=== PATIENT | female | born 1960 | race Caucasian/White ===

== ENCOUNTER 2020-09-18 08:01 | Outpatient (REF) | payer OTHER, SELFPAY | END 2020-09-18 08:02 | disposition home or self-care (01) | LOC: HO.LAB 08:01 | PROVIDERS: Visit Provider Internal Medicine | DX: Z20.828 Contact with and (suspected) exposure to other viral communicable diseases (principal) | CPT/HCPCS: C9803; U0003 ==

== ENCOUNTER 2021-05-14 08:43 | Outpatient (REF) | payer OTHER, SELFPAY ==
[2021-05-14 09:01] LABS: MANUAL DIFF FLAG NO
[2021-05-14 09:11] LABS: Basophils Absolute Auto 0.1 X10*3/uL (0.0-0.2); Basophils Percent Auto 1.2 % (0-2); Eosinophils Absolute Auto 0.1 X10*3/uL (0.0-0.4); Hematocrit 40.5 % (37-47); Hemoglobin 13.4 g/dl (12.0-16.0); Imm Gran Abs Auto 0.01 X10*3/uL (0.00-0.03); Imm Gran Pct Auto 0.2 % (0.0-0.4); Lymphocytes Absolute Auto 1.9 X10*3/uL (1.2-4.9); Lymphocytes Percent Auto 32.2 % (20-40); Mean Corpuscular HGB Conc 33.1 g/dl (31.0-35.0); Mean Corpuscular Hemoglobin 30.1 pg (27.0-33.0); Monocytes Absolute Auto 0.4 X10*3/uL (0.1-1.2); Monocytes Percent Auto 6.7 % (2-11); Neutrophils Absolute Auto 3.4 X10*3/uL (2.0-8.3); Neutrophils Percent Auto 57.7 % (45-73); Platelet Count 236 X10*3/uL (160-400); Red Blood Count 4.45 X10*6/uL (4.20-5.50); Red Cell Distribution Width 13.6 % (11.0-16.0); White Blood Count 5.9 X10*3/uL (4.8-10.8)
[2021-05-14 10:03] LABS: Alanine Aminotransferase 17 U/L (0-31); Albumin Level 4.2 g/dL (3.5-5.0); Alkaline Phosphatase 84 U/L (39-117); Anion Gap 13 (12-20); Aspartate Amino Transferase 17 U/L (5-31); Bilirubin Total 0.5 mg/dL (0.0-1.0); Blood Urea Nitrogen 15 mg/dL (9-16); Calcium 9.4 mg/dL (8.4-10.2); Carbon Dioxide 27 mmol/L (22-29); Chloride 106 mmol/L (96-108); Cholesterol 211 mg/dL; Estimated Glomerular Filt Rate > 60; Glucose Fasting 112 mg/dL (60-99); HDL Cholesterol 52 mg/dL; LDL Cholesterol Calculated 137 mg/dl; Potassium 3.9 mmol/L (3.3-5.1); Sodium 142 mmol/L (135-145); Total Protein 7.2 g/dL (6.5-8.0); Triglycerides 110 mg/dL
[2021-05-14 10:24] LABS: Free T4 (Free Thyroxine) 1.03 ng/dL (0.71-1.85); Thyroid Stimulating Hormone 2.56 uIU/mL (0.32-4.0); Vitamin D 25-OH Total 16.2 ng/mL (>30)
[2021-05-14 11:29] LABS: Vitamin B12 398 pg/mL (200-900)
== END 2021-05-14 08:44 | disposition home or self-care (01) ==
LOC: HO.LAB 08:43
PROVIDERS: PCP Internal Medicine; Visit Provider Internal Medicine
DX: I10 Essential (primary) hypertension (principal); E03.9 Hypothyroidism, unspecified; R53.83 Other fatigue; M19.90 Unspecified osteoarthritis, unspecified site
CPT/HCPCS: 36415; 80053; 80061; 82306; 82607; 84439; 84443; 85025

== ENCOUNTER 2021-06-15 14:39 | Outpatient (REF) | payer OTHER, SELFPAY ==
--- NOTE | ~2021-06-15 | MM_ITS ---
EXAMINATION: BONE DENSITOMETRY CLINICAL INDICATION: Screening for osteoporosis. COMPARISON: None (current study represents initial baseline exam). TECHNIQUE: Using a [employer] DXA System (software version: 13.1) manufactured by [employer], dual-energy x-ray absorptiometry was performed of the spine and left hip. The images are of good technical quality. Summary results are attached. FINDINGS: AP SPINE L1-L4: BMD 1.294 g/cm2, Z-score 1.2, T-score 0.9, normal. LEFT FEMUR, NECK: BMD 0.901 g/cm2, Z-score -0.4, T-score -1.0, normal. LEFT FEMUR, TOTAL: BMD 1.133 g/cm2, Z-score 1.2, T-score 1.0, normal. IDENTIFIED RISK FACTORS: Menopause. HISTORY OF FRACTURE: None listed. MEDICATIONS: Vitamin D. MM/XR DEXA axial skeleton IMPRESSION: 1. DIAGNOSIS: Normal bone density based on the lowest T-score value of -1.0 in the femoral neck applying World Health Organization criteria. 2. 10-YEAR FRACTURE RISK PREDICTION, FRAX: Major osteoporotic fracture (clinical spine, forearm, hip or shoulder) 3.5%. Hip fracture 0.2%. 3. Treatment Recommendations: NOF guidelines recommend consideration for treatment in postmenopausal women and men age 50 and older presenting with the following: -A hip or vertebral (clinical or morphometric) fracture. -T-score less than or equal to -2.5 at the femoral neck or spine after appropriate evaluation to exclude secondary causes. -Low bone mass at the hip or spine and a 10-year fracture probability by FRAX of greater than or equal to 3% for hip fracture or greater than or equal to 20% for major osteoporotic fracture based on the [place] adapted WHO algorithm. 4. Other Recommendations: All treatment decisions require clinical judgment and consideration of individual patient factors, including patient preferences, comorbidities, previous drug use, risk factors not captured in the FRAX model (e.g. frailty, falls, vitamin D deficiency, increased bone turnover, interval significant decline in bone density) and possible under or overestimation of fracture risk by FRAX. FUTURE SCAN RECOMMENDATION: People with diagnosed cases of osteoporosis or at high risk for fracture should have regular bone mineral density tests. For patients eligible for Medicare, routine testing is allowed once every 2 years. The testing frequency can be increased to one year for patients who have rapidly progressing disease, those who are receiving or discontinuing medical therapy to restore bone mass, or have additional risk factors.
--- NOTE | ~2021-06-15 | MM_ITS ---
EXAMINATION: MM SCREENING DIGITAL BREAST TOMOSYNTHESIS, BILATERAL CLINICAL INFORMATION: Screening. Asymptomatic. The lifetime risk of breast cancer based on the Tyrer-Cuzick Model is 9%. COMPARISON: Mammography: 07/22/2015, 06/01/2014 TECHNIQUE: Digital breast tomosynthesis is performed in both the craniocaudal and mediolateral oblique views along with computer-aided detection (CAD). Synthesized 2D images are generated from the tomosynthesis. Additional views are provided: Right CC, right MLO, left CC x2, left MLO. FINDINGS: There are scattered areas of fibroglandular density (ACR BI-RADS breast composition Category b). There are no significant masses, abnormal calcifications, or other abnormalities. Parenchymal pattern is similar to prior studies. No developing density. The axilla and skin contours are unremarkable. MM/MM tomosynthesis screening BI IMPRESSION: No mammographic evidence of malignancy. ASSESSMENT: BI-RADS 1: Negative RECOMMENDATION: Routine annual mammography screening. This patient's information was entered into a reminder system with a target due date for their next mammogram.
== END 2021-06-15 14:40 | disposition home or self-care (01) ==
LOC: HO.MAMMO 14:39
PROVIDERS: Visit Provider Internal Medicine
DX: Z12.31 Encounter for screening mammogram for malignant neoplasm of breast (principal); Z13.820 Encounter for screening for osteoporosis; Z78.0 Asymptomatic menopausal state; Z79.899 Other long term (current) drug therapy
CPT/HCPCS: 77063; 77067; 77080

== ENCOUNTER 2022-04-06 12:50 | Outpatient (REF) | payer OTHER, SELFPAY ==
[2022-04-06 14:07] LABS: Influenza A PCR NEGATIVE (Negative); Influenza B PCR NEGATIVE (Negative); Resp Syncy Virus RNA Qual PCR NEGATIVE (Negative); SARS COV2 PCR INHOUSE NEGATIVE (Negative)
== END 2022-04-06 12:51 | disposition home or self-care (01) ==
LOC: HO.LNP 12:50
PROVIDERS: Visit Provider Nurse Practitioner Acute Care
DX: R68.89 Other general symptoms and signs (principal); Z20.822 Contact with and (suspected) exposure to COVID-19
CPT/HCPCS: 0241U

== ENCOUNTER 2022-07-13 15:29 | Emergency (ER) | payer OTHER, SELFPAY ==
[2022-07-13 16:23] VITALS: BP 198/68; PULSE 63; RESP 16; TEMP 36.3; O2SAT 96; BMI 48.4
[2022-07-13 18:48] LABS: MANUAL DIFF FLAG NO
[2022-07-13 18:49] LABS: Basophils Absolute Auto 0.1 X10*3/uL (0.0-0.2); Basophils Percent Auto 1.1 % (0-2); Eosinophils Absolute Auto 0.2 X10*3/uL (0.0-0.4); Eosinophils Percent Auto 2.5 % (0-4); Hematocrit 41.8 % (37.0-47.0); Hemoglobin 13.7 g/dl (12.0-16.0); Imm Gran Abs Auto 0.03 X10*3/uL (0.00-0.03); Imm Gran Pct Auto 0.4 % (0.0-0.4); Lymphocytes Absolute Auto 1.8 X10*3/uL (1.2-4.9); Lymphocytes Percent Auto 23.3 % (20-40); Mean Corpuscular HGB Conc 32.8 g/dl (31.0-35.0); Mean Corpuscular Hemoglobin 29.7 pg (27.0-33.0); Mean Corpuscular Volume 90.5 fL (80.0-98.0); Mean Platelet Volume 10.2 fL (9.4-12.3); Monocytes Absolute Auto 0.5 X10*3/uL (0.1-1.2); Monocytes Percent Auto 6.9 % (2-11); Neutrophils Absolute Auto 5.2 x10*3/uL (2.0-8.3); Neutrophils Percent Auto 65.8 % (45-73); Platelet Count 280 X10*3/uL (160-400); Red Blood Count 4.62 X10*6/uL (4.20-5.50); Red Cell Distribution Width 13.1 % (11.0-16.0); White Blood Count 7.9 X10*3/uL (4.8-10.8)
[2022-07-13 18:50] LABS: Appearance Urine Clear; Color Urine Yellow; Glucose Urine UA Negative (Negative); Leukocyte Esterase Urine Moderate (2+) (Negative); Nitrite Urine Negative (Negative); Specific Gravity - Urine 1.015 (1.005-1.025); UMIC TRIGGER UACC YES; Urine Blood Large (3+) (Negative); Urine Ketones Negative (Negative); Urine Protein Negative (Neg-Trace)
[2022-07-13 18:55] LABS: Bacteria Urine None Seen (None Seen); Hyaline Casts Urine 0-2 /LPF (0-2); RBC Urine >20 /HPF (0-2); Squamous Epithelial Cell Urine 0-2 /HPF (0-2); UACC Culture Trigger YES; WBC Urine 21-50 /HPF (0-5)
[2022-07-13 19:10] LABS: Alanine Aminotransferase 14 U/L (0-31); Albumin Level 4.1 g/dL (3.5-5.0); Alkaline Phosphatase 88 U/L (39-117); Anion Gap 14 (12-20); Aspartate Amino Transferase 15 U/L (5-31); Bilirubin Total 0.3 mg/dL (0.0-1.0); Blood Urea Nitrogen 17 mg/dL (9-16); Calcium 9.7 mg/dL (8.4-10.2); Carbon Dioxide 26 mmol/L (22-29); Chloride 104 mmol/L (96-108); Creatinine Clr Calc Pharmacy 78.9; Estimated Glomerular Filt Rate > 60; Glucose Random 98 mg/dL (60-115); Potassium 3.9 mmol/L (3.3-5.1); Sodium 140 mmol/L (135-145); Total Protein 7.3 g/dL (6.5-8.0)
== END 2022-07-13 21:21 | disposition left against medical advice (07) ==
LOC: HO.ED 21:06
PROVIDERS: Emergency Provider Emergency Medicine; PCP Internal Medicine
DX: R10.9 Unspecified abdominal pain (principal); Z87.442 Personal history of urinary calculi; I10 Essential (primary) hypertension
CPT/HCPCS: 36415; 80053; 81001; 85025; 87086; 99282; 99283

== ENCOUNTER 2022-08-01 13:26 | Emergency (ER) | payer OTHER, SELFPAY ==
--- NOTE | ~2022-08-01 | CT_ITS ---
EXAMINATION: CT ABDOMEN AND PELVIS WITHOUT CONTRAST CLINICAL INFORMATION: Right flank pain COMPARISON: None TECHNIQUE: Multidetector volumetric imaging was performed from the superior aspect of the liver through the pubic symphysis. Sagittal and coronal reformatted images were obtained on the technologist's workstation. This CT examination was performed using dose optimization techniques as appropriate, variously including the following: *Automated exposure control *Adjustment of mA and/or kV according to patient size (this includes techniques or standardized protocols for targeted exams where dose is matched to indication/reason for exam; i.e. extremities or head) *Use of iterative reconstruction technique DLP: 917 mGy-cm FINDINGS: LUNG BASES: The visualized lung bases are unremarkable. LIVER, GALLBLADDER, AND BILIARY TREE: The liver is normal in size, shape, and attenuation. No focal hepatic lesion or biliary ductal dilatation is identified. The gallbladder is unremarkable with no evidence of radiopaque gallstones, gallbladder wall thickening, or obvious pericholecystic inflammatory changes. PANCREAS: Unremarkable. SPLEEN: Tiny calcified granulomas noted. ADRENAL GLANDS: Unremarkable. KIDNEYS AND URETERS: There is a 4 mm proximal left ureteral calculus with mild hydronephrosis. Punctate calculus in the mid left kidney. No right-sided hydronephrosis or obstructing calculus. BLADDER: Unremarkable. GASTROINTESTINAL TRACT: No evidence of bowel obstruction or significant wall thickening. No free fluid or free air is seen. ABDOMINAL WALL: No significant hernia is appreciated. LYMPH NODES: Normal. VASCULAR: Scattered atherosclerotic calcifications. PELVIC VISCERA: Unremarkable. OSSEOUS STRUCTURES: Scattered degenerative changes in the spine. CT/CT abdomen pelvis wo IV con IMPRESSION: Proximal left ureteral calculus measuring 4 mm with mild hydronephrosis.
[2022-08-01 15:17] VITALS: BP 187/85; PULSE 55; RESP 20; TEMP 36.1; O2SAT 96; BMI 48.4
[2022-08-01 23:01] LABS: Appearance Urine Clear; Color Urine Yellow; Glucose Urine UA Negative (Negative); Leukocyte Esterase Urine Large (3+) (Negative); Nitrite Urine Negative (Negative); PH 5.5 (5.0-9.0); Specific Gravity - Urine <= 1.005 (1.005-1.025); UMIC TRIGGER UACC YES; Urine Blood Moderate (2+) (Negative); Urine Ketones Negative (Negative); Urine Protein Negative (Neg-Trace)
[2022-08-01 23:17] LABS: Bacteria Urine 1+ (None Seen); Hyaline Casts Urine 0-2 /LPF (0-2); Squamous Epithelial Cell Urine 0-2 /HPF (0-2); UACC Culture Trigger YES; WBC Urine 21-50 /HPF (0-5)
[2022-08-02 03:47] VITALS: BP 152/67; PULSE 51; RESP 16; TEMP 36.6; O2SAT 96
--- NOTE | 2022-08-02 04:53 | ED_ITS ---
HPI - Abdominal Pain General Chief Complaint: Abdominal Pain Stated Complaint: Kidney Stones Time Seen by Provider: 08/02/22 04:38 Source: patient Mode of arrival: ambulatory Limitations: no limitations History of Present Illness HPI narrative: Patient with history of hypertension with remote history of kidney stone complaining of pain in the left side wrapping up to the front for last 3 weeks with nausea with blood in the urine no vomiting Related Data Home Medications Medication Instructions Recorded Confirmed levothyroxine 50 mcg tablet 50 mcg PO DAILY 04/06/22 metoprolol succinate 50 mg 50 mg PO DAILY 04/06/22 tablet,extended release 24 hr Previous Rx's Medication Instructions Recorded oxycodone 5 mg tablet 5 mg PO Q6H PRN Pain, Moderate #20 08/02/22 tabs tamsulosin 0.4 mg capsule (Flomax) 0.4 mg PO BEDTIME #10 caps 08/02/22 Allergies Allergy/AdvReac Type Severity Reaction Status Date / Time lisinopril [LISINOPRIL] Allergy Severe LIP Verified 07/12/22 12:50 NUMBNESS Review of Systems Review of Systems Yes all other systems are reviewed and are negative [facility] Social History Social History Patient Tobacco Use Status: Never used Tobacco Advance Directives: No Physical Exam ED Vital Signs: Vital Signs - 24 hr 08/01/22 15:17 08/02/22 03:47 08/02/22 05:10 Temperature 97.0 F 97.9 F 98 F Pulse Rate 55 51 64 Respiratory Rate 20 16 15 Blood Pressure 187/85 H 152/67 H 140/64 H Pulse Oximetry 96 96 96 Oxygen Delivery Method Room Air Room Air Room Air BMI result Body Mass Index 48.4 MDM - Abdominal Pain MDM Narrative Medical decision making narrative: Patient with 4 mm proximal left ureteric stone feeling better now discharge patient home follow-up with urologist Medical Records Attestation: I reviewed the patient's medical records. Lab Data Attestation: I reviewed the patient's lab results. Result diagrams: 08/02/22 05:28 08/02/22 05:28 Labs: Lab Results 08/01/22 08/02/22 08/02/22 Range/Units 22:55 05:28 05:28 WBC 7.0 (4.8-10.8) X10*3/uL RBC 4.63 (4.20-5.50) X10*6/uL Hgb 13.5 (12.0-16.0) g/dl Hct 40.8 (37.0-47.0) % MCV 88.1 (80.0-98.0) fL MCH 29.2 (27.0-33.0) pg MCHC 33.1 (31.0-35.0) g/dl RDW 12.8 (11.0-16.0) % Plt Count 250 (160-400) X10*3/uL MPV 10.0 (9.4-12.3) fL Immature Gran % (Auto) 0.3 (0.0-0.4) % Neut % (Auto) 70.5 (45-73) % Lymph % (Auto) 18.3 L (20-40) % [place] % (Auto) 6.6 (2-11) % Eos % (Auto) 3.4 (0-4) % Baso % (Auto) 0.9 (0-2) % Lymph # (Auto) 1.3 (1.2-4.9) X10*3/uL [place] # (Auto) 0.5 (0.1-1.2) X10*3/uL Eos # (Auto) 0.2 (0.0-0.4) X10*3/uL Baso # (Auto) 0.1 (0.0-0.2) X10*3/uL Abs Immat Gran (auto) 0.02 (0.00-0.03) X10*3/uL Absolute Neuts (auto) 5.0 (2.0-8.3) x10*3/uL Absolute Nucleated RBC 0.000 (0.0-0.012) X10*3/uL Nucleated RBC % (auto) 0.0 (0.0-0.2) /100WBC Sodium 138 (135-145) mmol/L Potassium 4.2 (3.3-5.1) mmol/L Chloride 102 (96-108) mmol/L Carbon Dioxide 24 (22-29) mmol/L Anion Gap 16 (12-20) BUN 14 (9-16) mg/dL Creatinine 0.70 (0.5-1.4) mg/dL Estim Creat Clear Calc 90.2 Estimated GFR > 60 Random Glucose 106 (60-115) mg/dL Calcium 9.2 (8.4-10.2) mg/dL Total Bilirubin 0.3 (0.0-1.0) mg/dL AST 22 D (5-31) U/L ALT 13 (0-31) U/L Alkaline Phosphatase 85 (39-117) U/L Total Protein 7.3 (6.5-8.0) g/dL Albumin 4.1 (3.5-5.0) g/dL Urine Color Yellow Urine Appearance Clear Urine pH 5.5 (5.0-9.0) Ur Specific [place] <= 1.005 (1.005-1.025) Urine Protein Negative (Neg-Trace) mg/dL Urine Glucose (UA) Negative (Negative) mg/dL Urine Ketones Negative (Negative) mg/dL Urine Blood Moderate (2+) H (Negative) Urine Nitrite Negative (Negative) Ur Leukocyte Esterase Large (3+) H (Negative) Urine RBC 3-5 H (0-2) /HPF Urine WBC 21-50 H (0-5) /HPF Ur Squamous Epith Cells 0-2 (0-2) /HPF Urine Bacteria 1+ (None Seen) Hyaline Casts 0-2 (0-2) /LPF Discharge Plan Discharge Clinical Impression: Kidney stone on left side Patient Disposition: Home, Self-Care Instructions: Kidney Stones (ED) Additional Instructions: Drink plenty of fluids Pain medication and Flomax as prescribed Follow-up with urologist Prescriptions: New oxycodone 5 mg tablet 5 mg PO Q6H PRN (Reason: Pain, Moderate) Qty: 20 0RF Rx Instructions: Partial Fill upon patient request. tamsulosin [Flomax] 0.4 mg capsule 0.4 mg PO BEDTIME Qty: 10 0RF No Action levothyroxine 50 mcg tablet 50 mcg PO DAILY metoprolol succinate 50 mg tablet extended release 24 hr 50 mg PO DAILY Referrals: Danyel Burns MD [Physician] - 2 days Interventions: ED Discharge Assessment Last Done: 08/02/22 07:40 Discharge Date/Time: 08/02/22 07:42
[2022-08-02 05:10] VITALS: BP 140/64; PULSE 64; RESP 15; TEMP 36.6; O2SAT 96
[2022-08-02] MEDS: 0.9 % Sodium Chloride 1,000 ML 999 ML IV (05:31)
[2022-08-02] MEDS: Morphine Sulfate 4 MG/ML CARTRIDGE IVPUSH (05:34)
[2022-08-02] MEDS: ondansetron HCL 4 MG/2 ML VIAL IVPUSH (05:34)
[2022-08-02 05:47] LABS: Basophils Absolute Auto 0.1 X10*3/uL (0.0-0.2); Basophils Percent Auto 0.9 % (0-2); Eosinophils Absolute Auto 0.2 X10*3/uL (0.0-0.4); Eosinophils Percent Auto 3.4 % (0-4); Hematocrit 40.8 % (37.0-47.0); Hemoglobin 13.5 g/dl (12.0-16.0); Imm Gran Abs Auto 0.02 X10*3/uL (0.00-0.03); Imm Gran Pct Auto 0.3 % (0.0-0.4); Lymphocytes Absolute Auto 1.3 X10*3/uL (1.2-4.9); Lymphocytes Percent Auto 18.3 % (20-40); MANUAL DIFF FLAG NO; Mean Corpuscular HGB Conc 33.1 g/dl (31.0-35.0); Mean Corpuscular Hemoglobin 29.2 pg (27.0-33.0); Mean Corpuscular Volume 88.1 fL (80.0-98.0); Monocytes Absolute Auto 0.5 X10*3/uL (0.1-1.2); Monocytes Percent Auto 6.6 % (2-11); Neutrophils Percent Auto 70.5 % (45-73); Platelet Count 250 X10*3/uL (160-400); Red Blood Count 4.63 X10*6/uL (4.20-5.50); Red Cell Distribution Width 12.8 % (11.0-16.0)
[2022-08-02 06:19] LABS: Alanine Aminotransferase 13 U/L (0-31); Albumin Level 4.1 g/dL (3.5-5.0); Alkaline Phosphatase 85 U/L (39-117); Anion Gap 16 (12-20); Aspartate Amino Transferase 22 U/L (5-31); Bilirubin Total 0.3 mg/dL (0.0-1.0); Blood Urea Nitrogen 14 mg/dL (9-16); Calcium 9.2 mg/dL (8.4-10.2); Carbon Dioxide 24 mmol/L (22-29); Chloride 102 mmol/L (96-108); Creatinine Clr Calc Pharmacy 90.2; Estimated Glomerular Filt Rate > 60; Glucose Random 106 mg/dL (60-115); Potassium 4.2 mmol/L (3.3-5.1); Sodium 138 mmol/L (135-145); Total Protein 7.3 g/dL (6.5-8.0)
== END 2022-08-02 07:42 | disposition home or self-care (01) ==
PROVIDERS: Emergency Provider Internal Medicine
DX: N20.0 Calculus of kidney (principal); Z79.899 Other long term (current) drug therapy
CPT/HCPCS: 36415; 74176; 80053; 81001; 81003; 85025; 87086; 96361; 96374; 96375; 99283; 99284; J2270; J2405

== ENCOUNTER 2022-10-07 19:19 | Emergency (ER) | payer OTHER, SELFPAY ==
--- NOTE | ~2022-10-07 | CT_ITS ---
EXAMINATION: CT ABDOMEN AND PELVIS WITHOUT CONTRAST CLINICAL INFORMATION: Left flank pain. COMPARISON: CT scan abdomen pelvis 08/02/2022 TECHNIQUE: Multidetector volumetric imaging was performed from the superior aspect of the liver through the pubic symphysis. Sagittal and coronal reformatted images were obtained on the technologist's workstation. This CT examination was performed using dose optimization techniques as appropriate, variously including the following: *Automated exposure control *Adjustment of mA and/or kV according to patient size (this includes techniques or standardized protocols for targeted exams where dose is matched to indication/reason for exam; i.e. extremities or head) *Use of iterative reconstruction technique DLP: 1124 mGy-cm FINDINGS: LUNG BASES: The visualized lung bases are unremarkable. LIVER, GALLBLADDER, AND BILIARY TREE: Liver is prominent size measuring 20 cm superior inferior. No focal liver lesion or intrahepatic bile duct dilatation. The gallbladder is unremarkable with no evidence of radiopaque gallstones, gallbladder wall thickening, or obvious pericholecystic inflammatory changes. PANCREAS: Unremarkable. SPLEEN: Unremarkable. ADRENAL GLANDS: Unremarkable. KIDNEYS AND URETERS: Left kidney: Moderate hydronephrosis of left kidney with distention renal pelvis calyces and the left-sided hydroureter. There is an obstructing 4 mm stone in the distal left ureter approximately 7 cm proximal to the left ureterovesical junction. There is a nonobstructive 1 mm stone in the mid upper pole of left kidney. Right kidney: No renal or ureteral calculus. No hydronephrosis. BLADDER: Unremarkable. GASTROINTESTINAL TRACT: The small and large bowel are unremarkable. The appendix is unremarkable. ABDOMINAL WALL: Surgical mesh at the right anterior abdominal wall. No evidence of recurrent hernia. No inflammation or fluid collection. LYMPH NODES: Normal. VASCULAR: Scattered vascular calcifications of the wall of aorta and iliac arteries. There is no aneurysm. PELVIC VISCERA: Uterus is anteverted. No adnexal abnormality. OSSEOUS STRUCTURES: Multilevel degenerative spondylosis of the spine. CT/CT abdomen pelvis wo IV con IMPRESSION: Moderate hydronephrosis of left kidney due to an obstructing 4 mm stone in the distal left ureter. Fleischner guidelines were followed.
[2022-10-07 19:41] VITALS: BP 194/71; PULSE 66; RESP 20; TEMP 36.4; O2SAT 96; BMI 47.0
--- NOTE | 2022-10-07 19:43 | ED_ITS ---
HPI - Abdominal Pain General Chief Complaint: Abdominal Pain <Nadia England NP - Last Filed: 10/07/22 19:44> Stated Complaint: L side pain <Nadia England NP - Last Filed: 10/07/22 19:44> Time Seen by Provider: 10/07/22 21:33 <Nadia England NP - Last Filed: 10/07/22 19:44> Source: patient <BASIM Singh - Last Filed: 10/07/22 22:45> Mode of arrival: ambulatory <BASIM Singh - Last Filed: 10/07/22 22:45> Limitations: no limitations <BASIM Singh Last Filed: 10/07/22 22:45> History of Present Illness HPI narrative: 62-year-old female with history of morbid obesity, HTN, left-sided kidney stones, recurring UTIs who presents to the ER for evaluation of left-sided upper abdominal pain that radiates to her left lower quadrant and to her back for the last few days. This is associated with nausea and urinary symptoms of painful urination, difficulty emptying her bladder and frequency. She denies any fever or chills at home but generally feels unwell. She states it feels different than her previous kidney stones. <BASIM Singh - Last Filed: 10/07/22 22:45> MD elicited complaint: abdominal pain and flank pain <BASIM Singh - Last Filed: 10/07/22 22:45> Pertinent past history: kidney stones <BASIM Singh - Last Filed: 10/07/22 22:45> Onset (ago): week(s) (1) <BASIM Singh Last Filed: 10/07/22 22:45> Pain Consistency: intermittent <BASIM Singh Last Filed: 10/07/22 22:45> Location: LUQ <BASIM Singh Last Filed: 10/07/22 22:45> Severity: moderate <BASIM Singh Last Filed: 10/07/22 22:45> Quality: stabbing and aching <BASIM Singh Last Filed: 10/07/22 22:45> Radiation: LLQ and L flank <BASIM Singh - Last Filed: 10/07/22 22:45> Migration to: no migration <BASIM Singh - Last Filed: 10/07/22 22:45> Exacerbating factors: nothing <BASIM Singh - Last Filed: 10/07/22 22:45> Relieving factors: nothing <BASIM Singh - Last Filed: 10/07/22 22:45> Associated symptoms: nausea and dysuria <BASIM Singh - Last Filed: 10/07/22 22:45> Related Data Home Medications: Home Medications Medication Instructions Recorded Confirmed levothyroxine 50 mcg tablet 50 mcg PO DAILY 04/06/22 metoprolol succinate 50 mg 50 mg PO DAILY 04/06/22 tablet,extended release 24 hr Previous Rx's Medication Instructions Recorded oxycodone 5 mg tablet 5 mg PO Q6H PRN Pain, Moderate #20 08/02/22 tabs tamsulosin 0.4 mg capsule (Flomax) 0.4 mg PO BEDTIME #10 caps 08/02/22 ibuprofen 600 mg tablet 600 mg PO Q8H PRN fever or pain 10/07/22 #20 tabs levofloxacin 750 mg tablet 750 mg PO DAILY #7 tabs 10/07/22 ondansetron 4 mg disintegrating 4 mg PO Q8H PRN nausea and 10/07/22 tablet vomiting 3 days #10 tabs oxycodone 5 mg tablet 5 mg PO Q8H PRN severe pain (scale 10/07/22 score 7-10) #7 tabs tamsulosin 0.4 mg capsule (Flomax) 0.4 mg PO DAILY #30 caps 10/07/22 <Nadia England NP - Last Filed: 10/07/22 19:44> Allergies/Adverse Reactions: Allergies Allergy/AdvReac Type Severity Reaction Status Date / Time lisinopril [LISINOPRIL] Allergy Severe LIP Verified 10/07/22 19:46 NUMBNESS <Nadia England NP - Last Filed: 10/07/22 19:44> Review of Systems Review of Systems Constitutional: No Fever, No Chills ENT/Mouth: No sore throat, No Rhinorrhea, No Swallowing Difficulty Cardiovascular: No Chest Pain, No SOB, No Orthopnea, No Edema Respiratory: No Cough, No Sputum, No Wheezing, No dyspnea Gastrointestinal: + Nausea, No Vomiting, No Diarrhea, + abdominal Pain, No Hematochezia, No Melena Genitourinary: + Dysuria, + Urinary Frequency, No Hematuria Musculoskeletal: No joint pain, +Myalgias Skin: No Skin Lesions, No rash Neuro: No Weakness, No Numbness, No Dizziness, No Headache Psych: No Anxiety/Panic, No Depression Heme/Lymph: No Bruising, No Lymphadenopathy <BASIM Singh - Last Filed: 10/07/22 22:45> [facility] Social History Social History: Social History Alcohol intake: never Patient Tobacco Use Status: Never used Tobacco Smoked in Last 30 Days: No Use of substances other than those prescribed or required for medical reasons: No Advance Directives: No Advance Directives Information Provided: Yes Patient : No <Nadia England NP - Last Filed: 10/07/22 19:44> Physical Exam ED Vital Signs: Vital Signs - 24 hr 10/07/22 19:41 10/07/22 22:00 Temperature 97.5 F 98.0 F Pulse Rate 66 58 Respiratory Rate 20 16 Blood Pressure 194/71 H 152/61 H Pulse Oximetry 96 96 Oxygen Delivery Method Room Air Room Air BMI result Body Mass Index 47.0 <Nadia England NP - Last Filed: 10/07/22 19:44> Vital Signs - 24 hr 10/07/22 19:41 10/07/22 22:00 Temperature 97.5 F 98.0 F Pulse Rate 66 58 Respiratory Rate 20 16 Blood Pressure 194/71 H 152/61 H Pulse Oximetry 96 96 Oxygen Delivery Method Room Air Room Air BMI result Body Mass Index 47.0 <BASIM Singh - Last Filed: 10/07/22 22:45> Appearance: Alert. Oriented X3. No acute distress. Eyes: Pupils equal, round and reactive to light. ENT: Pharynx normal. Neck: Normal inspection. Neck supple. CVS: Normal heart rate and rhythm. Pulses normal. Respiratory: No respiratory distress. Breath sounds normal. Abdomen: Obese, Soft with both LUQ and LLQ tenderness to deep palpation without rebound or guarding. normal+BS x4. +CVA tenderness on the left Skin: Skin warm and dry. Normal skin color. Normal skin turgor. No rashes. Extremities: No lower extremity edema. Neuro: Oriented X 3. No motor deficit. No sensory deficit. <BASIM Singh - Last Filed: 10/07/22 22:45> Course Course Course Narrative: This is a rapid medical exam. Deferred additional HPI, ROS and PE to the primary provider. 62-year-old female with a history of hypertension presents with left-sided abdominal pain with radiation to the flank with nausea for the last 1 week. Patient reports history of kidney stones. Will check labs, UA, COVID screen. Vitals stable. <Nadia England NP - Last Filed: 10/07/22 19:44> Reevaluation(s) Reevaluation #1: patient seen and examined in treatment room. VSS. appears well. She has no leukocytosis. Her renal function is normal. Her UA is c/w infection with moderate leukocyte esterase, 21-50 WBC. also with small amount of blood. Will get CT scan to assess for kidney stone/pyelo. She is not septic at this time. No fevers, no tachycardia and no elevated WBC. Will give dose of oral levaquin now and reassess. prior records reviewed - UA was positive and urine culture was negative. <BASIM Singh - Last Filed: 10/07/22 22:45> Reevaluation #2: CT scan with obstructing 4mm stone in the distal ureter w/ moderate hydro. She is comfortable after tylenol, no vomiting and no fevers. given she is not septic, will start her on treatment with po abx, flomax, pain control and have her follow up with urology for possible intervention if she does not pass the stone on her own. patient agrees with plan. all questions were answered. instructed to come back to the ER if she develops new or worsening symptoms. <BASIM Singh - Last Filed: 10/07/22 22:45> Medical Decision Making Lab Data Result Diagrams: : 10/07/22 19:56 10/07/22 19:56 <Nadia England NP - Last Filed: 10/07/22 19:44> Labs: Lab Results 10/07/22 10/07/22 10/07/22 Range/Units 19:53 19:53 19:56 WBC 9.2 (4.8-10.8) X10*3/uL RBC 4.67 (4.20-5.50) X10*6/uL Hgb 13.6 (12.0-16.0) g/dl Hct 40.3 (37.0-47.0) % MCV 86.3 (80.0-98.0) fL MCH 29.1 (27.0-33.0) pg MCHC 33.7 (31.0-35.0) g/dl RDW 12.9 (11.0-16.0) % Plt Count 265 (160-400) X10*3/uL MPV 10.2 (9.4-12.3) fL Immature Gran % (Auto) 0.4 (0.0-0.4) % Neut % (Auto) 67.0 (45-73) % Lymph % (Auto) 21.4 (20-40) % [place] % (Auto) 6.6 (2-11) % Eos % (Auto) 3.5 (0-4) % Baso % (Auto) 1.1 (0-2) % Lymph # (Auto) 2.0 (1.2-4.9) X10*3/uL [place] # (Auto) 0.6 (0.1-1.2) X10*3/uL Eos # (Auto) 0.3 (0.0-0.4) X10*3/uL Baso # (Auto) 0.1 (0.0-0.2) X10*3/uL Abs Immat Gran (auto) 0.04 H (0.00-0.03) X10*3/uL Absolute Neuts (auto) 6.2 (2.0-8.3) x10*3/uL Absolute Nucleated RBC 0.000 (0.0-0.012) X10*3/uL Nucleated RBC % (auto) 0.0 (0.0-0.2) /100WBC Sodium (135-145) mmol/L Potassium (3.3-5.1) mmol/L Chloride (96-108) mmol/L Carbon Dioxide (22-29) mmol/L Anion Gap (12-20) BUN (9-16) mg/dL Creatinine (0.5-1.4) mg/dL Estim Creat Clear Calc Estimated GFR Random Glucose (60-115) mg/dL Calcium (8.4-10.2) mg/dL Total Bilirubin (0.0-1.0) mg/dL Direct Bilirubin (0.0-0.5) mg/dL AST (5-31) U/L ALT (0-31) U/L Alkaline Phosphatase (39-117) U/L Total Protein (6.5-8.0) g/dL Albumin (3.5-5.0) g/dL Lipase (8-78) U/L Urine Color Yellow Urine Appearance Clear Urine pH 6.5 (5.0-9.0) Ur Specific [place] 1.015 (1.005-1.025) Urine Protein Negative (Neg-Trace) mg/dL Urine Glucose (UA) Negative (Negative) mg/dL Urine Ketones Negative (Negative) mg/dL Urine Blood Small (1+) H (Negative) Urine Nitrite Negative (Negative) Ur Leukocyte Esterase Moderate (2+) H (Negative) Urine RBC >20 H (0-2) /HPF Urine WBC 21-50 H (0-5) /HPF Ur Squamous Epith Cells 0-2 (0-2) /HPF Urine Bacteria None Seen (None Seen) Hyaline Casts 0-2 (0-2) /LPF COVID-19 (KULWINDER) Negative (Negative) COVID-19 Clin Com See Note 10/07/22 Range/Units 19:56 WBC (4.8-10.8) X10*3/uL RBC (4.20-5.50) X10*6/uL Hgb (12.0-16.0) g/dl Hct (37.0-47.0) % MCV (80.0-98.0) fL MCH (27.0-33.0) pg MCHC (31.0-35.0) g/dl RDW (11.0-16.0) % Plt Count (160-400) X10*3/uL MPV (9.4-12.3) fL Immature Gran % (Auto) (0.0-0.4) % Neut % (Auto) (45-73) % Lymph % (Auto) (20-40) % [place] % (Auto) (2-11) % Eos % (Auto) (0-4) % Baso % (Auto) (0-2) % Lymph # (Auto) (1.2-4.9) X10*3/uL [place] # (Auto) (0.1-1.2) X10*3/uL Eos # (Auto) (0.0-0.4) X10*3/uL Baso # (Auto) (0.0-0.2) X10*3/uL Abs Immat Gran (auto) (0.00-0.03) X10*3/uL Absolute Neuts (auto) (2.0-8.3) x10*3/uL Absolute Nucleated RBC (0.0-0.012) X10*3/uL Nucleated RBC % (auto) (0.0-0.2) /100WBC Sodium 138 (135-145) mmol/L Potassium 3.5 (3.3-5.1) mmol/L Chloride 102 (96-108) mmol/L Carbon Dioxide 25 (22-29) mmol/L Anion Gap 15 (12-20) BUN 17 H (9-16) mg/dL Creatinine 1.08 (0.5-1.4) mg/dL Estim Creat Clear Calc 56.6 Estimated GFR 51 Random Glucose 159 H (60-115) mg/dL Calcium 9.5 (8.4-10.2) mg/dL Total Bilirubin 0.3 (0.0-1.0) mg/dL Direct Bilirubin < 0.2 (0.0-0.5) mg/dL AST 14 (5-31) U/L ALT 14 (0-31) U/L Alkaline Phosphatase 95 (39-117) U/L Total Protein 7.2 (6.5-8.0) g/dL Albumin 4.3 (3.5-5.0) g/dL Lipase 16 (8-78) U/L Urine Color Urine Appearance Urine pH (5.0-9.0) Ur Specific [place] (1.005-1.025) Urine Protein (Neg-Trace) mg/dL Urine Glucose (UA) (Negative) mg/dL Urine Ketones (Negative) mg/dL Urine Blood (Negative) Urine Nitrite (Negative) Ur Leukocyte Esterase (Negative) Urine RBC (0-2) /HPF Urine WBC (0-5) /HPF Ur Squamous Epith Cells (0-2) /HPF Urine Bacteria (None Seen) Hyaline Casts (0-2) /LPF COVID-19 ([facility]) (Negative) COVID-19 Clin Com <Nadia England, POLO - Last Filed: 10/07/22 19:44> Lab Results 10/07/22 10/07/22 10/07/22 Range/Units 19:53 19:53 19:56 WBC 9.2 (4.8-10.8) X10*3/uL RBC 4.67 (4.20-5.50) X10*6/uL Hgb 13.6 (12.0-16.0) g/dl Hct 40.3 (37.0-47.0) % MCV 86.3 (80.0-98.0) fL MCH 29.1 (27.0-33.0) pg MCHC 33.7 (31.0-35.0) g/dl RDW 12.9 (11.0-16.0) % Plt Count 265 (160-400) X10*3/uL MPV 10.2 (9.4-12.3) fL Immature Gran % (Auto) 0.4 (0.0-0.4) % Neut % (Auto) 67.0 (45-73) % Lymph % (Auto) 21.4 (20-40) % [place] % (Auto) 6.6 (2-11) % Eos % (Auto) 3.5 (0-4) % Baso % (Auto) 1.1 (0-2) % Lymph # (Auto) 2.0 (1.2-4.9) X10*3/uL [place] # (Auto) 0.6 (0.1-1.2) X10*3/uL Eos # (Auto) 0.3 (0.0-0.4) X10*3/uL Baso # (Auto) 0.1 (0.0-0.2) X10*3/uL Abs Immat Gran (auto) 0.04 H (0.00-0.03) X10*3/uL Absolute Neuts (auto) 6.2 (2.0-8.3) x10*3/uL Absolute Nucleated RBC 0.000 (0.0-0.012) X10*3/uL Nucleated RBC % (auto) 0.0 (0.0-0.2) /100WBC Sodium (135-145) mmol/L Potassium (3.3-5.1) mmol/L Chloride (96-108) mmol/L Carbon Dioxide (22-29) mmol/L Anion Gap (12-20) BUN (9-16) mg/dL Creatinine (0.5-1.4) mg/dL Estim Creat Clear Calc Estimated GFR Random Glucose (60-115) mg/dL Calcium (8.4-10.2) mg/dL Total Bilirubin (0.0-1.0) mg/dL Direct Bilirubin (0.0-0.5) mg/dL AST (5-31) U/L ALT (0-31) U/L Alkaline Phosphatase (39-117) U/L Total Protein (6.5-8.0) g/dL Albumin (3.5-5.0) g/dL Lipase (8-78) U/L Urine Color Yellow Urine Appearance Clear Urine pH 6.5 (5.0-9.0) Ur Specific [place] 1.015 (1.005-1.025) Urine Protein Negative (Neg-Trace) mg/dL Urine Glucose (UA) Negative (Negative) mg/dL Urine Ketones Negative (Negative) mg/dL Urine Blood Small (1+) H (Negative) Urine Nitrite Negative (Negative) Ur Leukocyte Esterase Moderate (2+) H (Negative) Urine RBC >20 H (0-2) /HPF Urine WBC 21-50 H (0-5) /HPF Ur Squamous Epith Cells 0-2 (0-2) /HPF Urine Bacteria None Seen (None Seen) Hyaline Casts 0-2 (0-2) /LPF COVID-19 ([facility]) Negative (Negative) COVID-19 Clin Com See Note 10/07/22 Range/Units 19:56 WBC (4.8-10.8) X10*3/uL RBC (4.20-5.50) X10*6/uL Hgb (12.0-16.0) g/dl Hct (37.0-47.0) % MCV (80.0-98.0) fL MCH (27.0-33.0) pg MCHC (31.0-35.0) g/dl RDW (11.0-16.0) % Plt Count (160-400) X10*3/uL MPV (9.4-12.3) fL Immature Gran % (Auto) (0.0-0.4) % Neut % (Auto) (45-73) % Lymph % (Auto) (20-40) % [place] % (Auto) (2-11) % Eos % (Auto) (0-4) % Baso % (Auto) (0-2) % Lymph # (Auto) (1.2-4.9) X10*3/uL [place] # (Auto) (0.1-1.2) X10*3/uL Eos # (Auto) (0.0-0.4) X10*3/uL Baso # (Auto) (0.0-0.2) X10*3/uL Abs Immat Gran (auto) (0.00-0.03) X10*3/uL Absolute Neuts (auto) (2.0-8.3) x10*3/uL Absolute Nucleated RBC (0.0-0.012) X10*3/uL Nucleated RBC % (auto) (0.0-0.2) /100WBC Sodium 138 (135-145) mmol/L Potassium 3.5 (3.3-5.1) mmol/L Chloride 102 (96-108) mmol/L Carbon Dioxide 25 (22-29) mmol/L Anion Gap 15 (12-20) BUN 17 H (9-16) mg/dL Creatinine 1.08 (0.5-1.4) mg/dL Estim Creat Clear Calc 56.6 Estimated GFR 51 Random Glucose 159 H (60-115) mg/dL Calcium 9.5 (8.4-10.2) mg/dL Total Bilirubin 0.3 (0.0-1.0) mg/dL Direct Bilirubin < 0.2 (0.0-0.5) mg/dL AST 14 (5-31) U/L ALT 14 (0-31) U/L Alkaline Phosphatase 95 (39-117) U/L Total Protein 7.2 (6.5-8.0) g/dL Albumin 4.3 (3.5-5.0) g/dL Lipase 16 (8-78) U/L Urine Color Urine Appearance Urine pH (5.0-9.0) Ur Specific [place] (1.005-1.025) Urine Protein (Neg-Trace) mg/dL Urine Glucose (UA) (Negative) mg/dL Urine Ketones (Negative) mg/dL Urine Blood (Negative) Urine Nitrite (Negative) Ur Leukocyte Esterase (Negative) Urine RBC (0-2) /HPF Urine WBC (0-5) /HPF Ur Squamous Epith Cells (0-2) /HPF Urine Bacteria (None Seen) Hyaline Casts (0-2) /LPF COVID-19 ([facility]) (Negative) COVID-19 Clin Com <BASIM Singh - Last Filed: 10/07/22 22:45> Medications Administered Discontinued Medications Generic Name Dose Route Start Last Admin Trade Name Freq PRN Reason Stop Dose Admin Acetaminophen 975 mg 10/07/22 21:38 10/07/22 22:11 Acetaminophen 325 Mg Tablet PO 10/07/22 21:39 975 mg ONCE ONE Administration Levofloxacin 750 mg 10/07/22 21:38 10/07/22 22:11 Levofloxacin 750 Mg Tablet PO 10/07/22 21:39 750 mg ONCE ONE Administration <Nadia England NP - Last Filed: 10/07/22 19:44> Medications Administered Discontinued Medications Generic Name Dose Route Start Last Admin Trade Name Freq PRN Reason Stop Dose Admin Acetaminophen 975 mg 10/07/22 21:38 10/07/22 22:11 Acetaminophen 325 Mg Tablet PO 10/07/22 21:39 975 mg ONCE ONE Administration Levofloxacin 750 mg 10/07/22 21:38 10/07/22 22:11 Levofloxacin 750 Mg Tablet PO 10/07/22 21:39 750 mg ONCE ONE Administration <BASIM Singh - Last Filed: 10/07/22 22:45> Discharge Plan Discharge Clinical Impression: UTI (urinary tract infection), Kidney stone on left side <Nadia England NP - Last Filed: 10/07/22 19:44> Patient Disposition: Home, Self-Care <Nadia England NP - Last Filed: 10/07/22 19:44> Instructions: Kidney Stones (ED), Urinary Tract Infection in Women (ED) <Nadia England NP - Last Filed: 10/07/22 19:44> Additional Instructions: Your CT scan showed a 4mm kidney stone. You most likely will pass this on your own Take the prescribed medications as directed Drink plenty of fluids Call the Urology office tomorrow to arrange outpatient follow up If you develop worsening pain, fevers, vomiting or any other concerning symptoms call 911 or come back to the ER for further evaluation. <Nadia England NP - Last Filed: 10/07/22 19:44> Prescriptions: New oxycodone 5 mg tablet 5 mg PO Q8H PRN (Reason: severe pain (scale score 7-10)) Qty: 7 0RF Rx Instructions: Partial Fill upon patient request. ibuprofen 600 mg tablet 600 mg PO Q8H PRN (Reason: fever or pain) Qty: 20 0RF tamsulosin [Flomax] 0.4 mg capsule 0.4 mg PO DAILY Qty: 30 0RF ondansetron 4 mg tablet,disintegrating 4 mg PO Q8H PRN (Reason: nausea and vomiting) 3 Days Qty: 10 0RF levofloxacin 750 mg tablet 750 mg PO DAILY Qty: 7 0RF No Action oxycodone 5 mg tablet 5 mg PO Q6H PRN (Reason: Pain, Moderate) Qty: 20 0RF Rx Instructions: Partial Fill upon patient request. tamsulosin [Flomax] 0.4 mg capsule 0.4 mg PO BEDTIME Qty: 10 0RF levothyroxine 50 mcg tablet 50 mcg PO DAILY metoprolol succinate 50 mg tablet extended release 24 hr 50 mg PO DAILY <Nadia England NP - Last Filed: 10/07/22 19:44> Referrals: [facility] [Provider Group] <Nadia England NP - Last Filed: 10/07/22 19:44>
[2022-10-07 20:00] LABS: MANUAL DIFF FLAG NO
[2022-10-07 20:05] LABS: Basophils Absolute Auto 0.1 X10*3/uL (0.0-0.2); Basophils Percent Auto 1.1 % (0-2); Eosinophils Absolute Auto 0.3 X10*3/uL (0.0-0.4); Eosinophils Percent Auto 3.5 % (0-4); Hematocrit 40.3 % (37.0-47.0); Hemoglobin 13.6 g/dl (12.0-16.0); Imm Gran Abs Auto 0.04 X10*3/uL (0.00-0.03); Imm Gran Pct Auto 0.4 % (0.0-0.4); Lymphocytes Percent Auto 21.4 % (20-40); Mean Corpuscular HGB Conc 33.7 g/dl (31.0-35.0); Mean Corpuscular Hemoglobin 29.1 pg (27.0-33.0); Mean Corpuscular Volume 86.3 fL (80.0-98.0); Mean Platelet Volume 10.2 fL (9.4-12.3); Monocytes Absolute Auto 0.6 X10*3/uL (0.1-1.2); Monocytes Percent Auto 6.6 % (2-11); Neutrophils Absolute Auto 6.2 x10*3/uL (2.0-8.3); Platelet Count 265 X10*3/uL (160-400); Red Blood Count 4.67 X10*6/uL (4.20-5.50); Red Cell Distribution Width 12.9 % (11.0-16.0); White Blood Count 9.2 X10*3/uL (4.8-10.8)
[2022-10-07 20:15] LABS: COVID-19 Test Negative (Negative); IDNOW Serial# 16C4AD1C
[2022-10-07 20:17] LABS: Appearance Urine Clear; Color Urine Yellow; Glucose Urine UA Negative (Negative); Leukocyte Esterase Urine Moderate (2+) (Negative); Nitrite Urine Negative (Negative); PH 6.5 (5.0-9.0); Specific Gravity - Urine 1.015 (1.005-1.025); UMIC TRIGGER UACC YES; Urine Blood Small (1+) (Negative); Urine Ketones Negative (Negative); Urine Protein Negative (Neg-Trace)
[2022-10-07 20:21] LABS: Alanine Aminotransferase 14 U/L (0-31); Albumin Level 4.3 g/dL (3.5-5.0); Alkaline Phosphatase 95 U/L (39-117); Anion Gap 15 (12-20); Aspartate Amino Transferase 14 U/L (5-31); Bilirubin Direct < 0.2 mg/dL (0.0-0.5); Bilirubin Total 0.3 mg/dL (0.0-1.0); Blood Urea Nitrogen 17 mg/dL (9-16); Calcium 9.5 mg/dL (8.4-10.2); Carbon Dioxide 25 mmol/L (22-29); Chloride 102 mmol/L (96-108); Creatinine Clr Calc Pharmacy 56.6; Estimated Glomerular Filt Rate 51; Glucose Random 159 mg/dL (60-115); Lipase 16 U/L (8-78); Potassium 3.5 mmol/L (3.3-5.1); Sodium 138 mmol/L (135-145); Total Protein 7.2 g/dL (6.5-8.0)
[2022-10-07 20:39] LABS: Bacteria Urine None Seen (None Seen); Hyaline Casts Urine 0-2 /LPF (0-2); RBC Urine >20 /HPF (0-2); Squamous Epithelial Cell Urine 0-2 /HPF (0-2); UACC Culture Trigger YES; WBC Urine 21-50 /HPF (0-5)
[2022-10-07 22:00] VITALS: BP 152/61; PULSE 58; RESP 16; TEMP 36.7; O2SAT 96
[2022-10-07] MEDS: Acetaminophen 325 MG TABLET 975 MG PO (22:11)
[2022-10-07] MEDS: levoFLOXacin 750 MG TABLET PO (22:11)
[2022-10-07] MEDS: Tamsulosin HCL 0.4 MG CAPSULE PO (23:21)
[2022-10-07] MEDS: Ibuprofen 600 MG TABLET PO (23:21)
== END 2022-10-07 23:58 | disposition home or self-care (01) ==
PROVIDERS: Nurse Practitioner Family; Emergency Provider Emergency Medicine; PCP Internal Medicine
DX: N13.2 Hydronephrosis with renal and ureteral calculous obstruction (principal); N39.0 Urinary tract infection, site not specified; Z20.822 Contact with and (suspected) exposure to COVID-19
CPT/HCPCS: 36415; 74176; 80048; 80076; 81001; 81003; 83690; 85025; 87086; 87635; 99284

== ENCOUNTER 2022-10-14 16:19 | Outpatient (REF) | payer OTHER, SELFPAY ==
[2022-10-14 17:39] LABS: Urine Cytology See Pathology rpt
== END 2022-10-14 16:20 | disposition home or self-care (01) ==
LOC: HO.LAB 16:19
PROVIDERS: Visit Provider Nurse Practitioner Family
DX: R31.29 Other microscopic hematuria (principal)
CPT/HCPCS: 88112

== ENCOUNTER 2022-10-15 12:49 | Day surgery (SDC) | payer OTHER, SELFPAY ==
--- NOTE | ~2022-10-15 | FL_ITS ---
EXAMINATION: XR FLUOROSCOPY WITH IMAGES CLINICAL INFORMATION: Urinary tract calculi COMPARISON: CT Stone study 10/07/2022. TECHNIQUE: Fluoroscopy Supervised By: Dr. Barron. Fluoroscopy Time: 29 seconds. Cumulative Dose: 21.5 mGy. Images: 3. FINDINGS: There is some scant contrast left collecting system. There is mild hydronephrosis. Guidewire is present in the collecting system and final image shows left ureteral stent in position. No extravasation of contrast. FL/FL guidance in OR IMPRESSION: Fluoroscopy for urologic procedure.
--- NOTE | 2022-10-15 12:58 | HO.ANESPROP2 ---
[facility] Active Problems Active Problems: All Active Problems (Updated 10/14/22 @ 16:05 by GAVI Jeter) Flank pain (Acute) Ureteral stone with hydronephrosis (Acute) Hypertension (Acute) Acute cough (Acute) Chest congestion (Acute) Bronchitis (Acute) Flu-like symptoms (Acute) Past Medical History Medical History (Updated 10/15/22 @ 13:11 by Ce Dunaway RN) Asthma Bilateral kidney stones Hypothyroid Family History Family history of problems with anesthesia: No Surgical History Surgical History (Updated 10/15/22 @ 13:12 by Ce Dunaway RN) Hx of arthroscopy of right knee Hx of hand surgery Previous section History of Problems with Anesthesia: No Social History Social History Alcohol intake: never Patient Tobacco Use Status: Never used Tobacco Use of substances other than those prescribed or required for medical reasons: No Are you DNR?: No Advance Directives: No Advance Directives Information Provided: Yes Meds Allergies Allergy/AdvReac Type Severity Reaction Status Date / Time lisinopril [LISINOPRIL] Allergy Severe LIP Verified 10/15/22 13:17 NUMBNESS Home Medications Medication Instructions Recorded Confirmed Last Taken Type levothyroxine 50 mcg tablet 50 mcg PO DAILY 04/06/22 10/14/22 10/15/22 10:00 History metoprolol succinate 50 mg 50 mg PO DAILY 04/06/22 10/14/22 10/15/22 10:00 History tablet,extended release 24 hr amlodipine 5 mg tablet mg 10/15/22 10/15/22 10/15/22 10:00 History Exam Exam Date and Time: October 15, 2022 [id number] Airway Mallampati Class: II TM Dist: >3cm Neck ROM: Full Heart: rrr Lungs: clear Assessment and Plan Final Anesthetic Review Family History of Problems with Anesthesia: No History of Problems with Anesthesia: No NPO: Yes ASA Class: II Final Preanesthetic Review: No Changes in Pt Med Stat, Meds/Allgs Chart Reviewed, Consent Obtained/Reviewed and Anes Risks/Benef Reviewed Patient Risk: Intermediate Procedure Risk: Low Anesthetic Plan Anesthetic Plan: GA Disposition: Standard PACU
[2022-10-15 13:02] VITALS: BP 173/83; PULSE 68; RESP 18; TEMP 36.7; O2SAT 95; BMI 47.0
--- NOTE | 2022-10-15 13:42 | MHC.SHP ---
Pre-Procedural Eval Section A Date of Service: 10/15/22 The patient is an INPATIENT: No The History & Physical has been completed within 30 days and I have reviewed it.: Yes Section B Chief Complaint: Calculus of kidney Allergies: Allergies Allergy/AdvReac Type Severity Reaction Status Date / Time lisinopril [LISINOPRIL] Allergy Severe LIP Verified 10/15/22 13:17 NUMBNESS Plan Diagnosis/Plan: Unchanged I have reviewed the history and physical and performed a pertinent physical examination on my patient. No changes have occurred unless specified. Plan for Cystoscopy, Left ureteroscopy, possible laser lithotripsy, possible ureteral stent. Risks discussed included but not limited to, possible need to repeat procedure if stone is not completely fragmented, Irritative voiding symptoms, bladder spasms, urgency, blood in urine. Time Spent With Patient Time: Total time managing care of this patient today ____ minutes.
[2022-10-15 15:05] VITALS: BP 147/67; PULSE 62; RESP 20; TEMP 36.2; O2SAT 96
[2022-10-15 15:10] VITALS: BP 150/67; PULSE 58; RESP 13; O2SAT 96
[2022-10-15 15:15] VITALS: BP 151/70; PULSE 61; RESP 13; O2SAT 96
[2022-10-15 15:20] VITALS: BP 139/64; PULSE 64; RESP 14; TEMP 36.1; O2SAT 96
--- NOTE | 2022-10-15 15:23 | W.PM.OPN ---
Operative Note Operative Note Date of Service: 10/15/22 Narrative: PreOperative Diagnosis:?? Left ureteral stone Post Operative Diagnosis:?? Left ureteral stone Procedure: - cystoscopy, left retrograde, left ureteroscopy laser lithotripsy stent insertion, 6 [place] by 24 cm Surgeon:?Dr Anyi Barron Anesthesia:? General Procedure: After informed consent was verified the patient was brought to the operating placed on the OR table in supine position.? General Anesthesia was administered per protocol.? The patient was placed in lithotomy position, prepped and draped in the usual sterile fashion.? Safety pause time-out and side of surgery confirmed.? Antibiotics confirmed. 2% lidocaine jelly 10 mL was passed transurethrally. A 22 [place] cystoscope was inserted transurethrally, The bladder was visualized.? Both ureteric orifices were in normal position. An open-ended ureteral catheter was passed into the left ureteral orifice and a retrograde examination was performed. There was a filling defect in the upper 1/3 of the distal ureter and dilatation of the proximal ureter and renal pelvis and calices. A guidewire was passed through the ureteral catheter into the kidney. The balloon dilator 15 fr was passed over the guide to the intramural ureter, the balloon was dilated to 8 mmHg for 45 seconds then deflated and removed. A second guide wire was then passed alongside the other guide wire into the left renal system. The cystoscope was removed, leaving the guidewires in place. One guidewire was used as the safety and was attached to the draping. The semi rigid ureteroscope was passed over the guidewire to the level of the stone in the ureter. The ureter was noted to be narrow and slightly stenotic in the area surrounding the stone. Laser lithotripsy of the stone was done using the 220 fiber with a settings 0.6 joules by 6 hertz. There was good fragmentation of the stone. The 0 degree basket was passed through the ureteroscope, to remove the larger stone fragments to send for analysis. The ureteroscope was removed. The cystoscope was passed over the safety guidewire. A? 6 [place] by 24 cm stent was placed into the ureter and renal pelvis under a combination of fluoroscopy and direct visualization. The bladder was emptied.? The rigid cystoscope was removed. ? Due to the stenotic changes in the ureter as noted above, plan will be to keep stent in place for at least 4 weeks. The patient tolerated the procedure well and was brought to the recovery room in stable condition. Complications: None Drains: Ureteral stent as dictated above
[2022-10-21 13:08] LABS: Stone Source LEFT URETERAL STONE
== END 2022-10-15 16:00 | disposition home or self-care (01) ==
PROVIDERS: PCP Urology; Visit Provider Urology
PROC: (CPT 52356; principal; 2022-10-15 14:30)
DX: N13.2 Hydronephrosis with renal and ureteral calculous obstruction (principal); R10.9 Unspecified abdominal pain; I10 Essential (primary) hypertension; J45.909 Unspecified asthma, uncomplicated; E03.9 Hypothyroidism, unspecified; Z79.1 Long term (current) use of non-steroidal anti-inflammatories (NSAID); Z79.899 Other long term (current) drug therapy; Z88.8 Allergy status to other drugs, medicaments and biological substances
CPT/HCPCS: 52356; 82365; 87086; 88300; C1726; C1758; C1769; C2617; J0690; J1100; J2250; J3010; Q9967

== ENCOUNTER 2022-10-31 09:52 | Outpatient (REF) | payer OTHER, SELFPAY | END 2022-10-31 09:53 | disposition home or self-care (01) | LOC: HO.LAB 09:52 | PROVIDERS: PCP Internal Medicine; Visit Provider Urology | DX: N13.2 Hydronephrosis with renal and ureteral calculous obstruction (principal); R30.9 Painful micturition, unspecified | CPT/HCPCS: 87086; 99212 ==

== ENCOUNTER → 2022-12-03 09:38 | Outpatient (BNVA) | payer OTHER, SELFPAY | PROVIDERS: PCP Internal Medicine; Visit Provider Urology | DX: N20.0 Calculus of kidney (principal) | CPT/HCPCS: 52310; 99212 ==

== ENCOUNTER 2023-02-07 06:22 | Outpatient (REF) | payer OTHER, SELFPAY ==
--- NOTE | ~2023-02-07 | XR_ITS ---
EXAMINATION: XR BILATERAL KNEES CLINICAL INFORMATION: Reason for Exam M25.562 - Pain in left knee COMPARISON: Knee radiographs 05/20/2018 TECHNIQUE: 1 standing views of the bilateral knees. 2 views of the left knee. FINDINGS: RIGHT KNEE: No acute fracture or dislocation. Moderate degenerative changes of the knee worst involving the lateral compartment with there is loss of joint space with medial and lateral compartment osteophytes. Mild varus angulation of the knee. Soft tissues are unremarkable. LEFT KNEE: No acute fracture or dislocation. Mild to moderate degenerative changes of the knee with borderline loss of medial compartment joint space, tricompartmental osteophytes and quadriceps tendon enthesopathy. This is similar to prior. Mild varus angulation of the knee. No joint effusion. Soft tissues are unremarkable. XR/XR knee LT 2V IMPRESSION: * No acute osseous abnormality. * Moderate degenerative changes of the right knee and mild to moderate degenerative changes of the left knee.
--- NOTE | ~2023-02-07 | XR_ITS ---
EXAMINATION: XR BILATERAL KNEES CLINICAL INFORMATION: Reason for Exam M25.562 - Pain in left knee COMPARISON: Knee radiographs 05/20/2018 TECHNIQUE: 1 standing views of the bilateral knees. 2 views of the left knee. FINDINGS: RIGHT KNEE: No acute fracture or dislocation. Moderate degenerative changes of the knee worst involving the lateral compartment with there is loss of joint space with medial and lateral compartment osteophytes. Mild varus angulation of the knee. Soft tissues are unremarkable. LEFT KNEE: No acute fracture or dislocation. Mild to moderate degenerative changes of the knee with borderline loss of medial compartment joint space, tricompartmental osteophytes and quadriceps tendon enthesopathy. This is similar to prior. Mild varus angulation of the knee. No joint effusion. Soft tissues are unremarkable. XR/XR knee standing BI IMPRESSION: * No acute osseous abnormality. * Moderate degenerative changes of the right knee and mild to moderate degenerative changes of the left knee.
== END 2023-02-07 06:23 | disposition home or self-care (01) ==
LOC: HO.HOSX 06:22
PROVIDERS: Visit Provider Physician Assistant
DX: M17.12 Unilateral primary osteoarthritis, left knee (principal); M25.562 Pain in left knee; M25.561 Pain in right knee
CPT/HCPCS: 20610; 73560; 73565; 99202; J1040

== ENCOUNTER 2023-02-17 12:48 | Outpatient (REF) | payer OTHER, SELFPAY ==
--- NOTE | ~2023-02-17 | US_ITS ---
EXAMINATION: US RETROPERITONEAL LIMITED (RENAL ONLY) CLINICAL INFORMATION: Hydronephrosis with renal and ureteral calculus obstruction. COMPARISON: CT abdomen and pelvis without contrast 10/07/2022. TECHNIQUE: Real-time imaging of the kidneys. FINDINGS: RIGHT KIDNEY: 11.1 x 5.0 x 6.0 cm (SAG x AP x TRV). The kidney is normal in size, contour, and echogenicity. Renal cortical thickness is normal. No calculi or focal parenchymal lesions. No hydronephrosis. Few linear echogenic foci without twinkle or shadowing may reflect vascular reflectors. LEFT KIDNEY: 12.7 x 5.4 x 5.7 cm (SAG x AP x TRV). The kidney is normal in size, contour, and echogenicity. Renal cortical thickness is normal. No calculi or focal parenchymal lesions. No hydronephrosis. US/US renal BI IMPRESSION: Few linear echogenic foci without clear shadowing or twinkle artifact in the right kidney may reflect vascular reflectors. No hydronephrosis or definite nephrolithiasis.
== END 2023-02-17 12:49 | disposition home or self-care (01) ==
LOC: HO.US 12:48
PROVIDERS: PCP Internal Medicine; Visit Provider Urology
DX: N13.2 Hydronephrosis with renal and ureteral calculous obstruction (principal)
CPT/HCPCS: 76775

== ENCOUNTER → 2023-03-07 10:24 | Outpatient (BNVA) | payer OTHER, SELFPAY | PROVIDERS: PCP Internal Medicine; Visit Provider Urology | DX: N20.0 Calculus of kidney (principal); N32.81 Overactive bladder; R82.994 Hypercalciuria | CPT/HCPCS: 51798; 99212 ==

== ENCOUNTER 2023-05-12 12:41 | Outpatient (AMB) | payer OTHER, SELFPAY ==
--- NOTE | 2023-05-12 12:44 | MHC.OFFVIS ---
Intake Vital Signs 05/12/23 12:51 Height 4 ft 11 in Weight 232 lb BMI 46.9 Intake Visit Reasons: ov- osteoarthritis, left knee Intake Note: Maryanne is a 62 year old female who presents today for a follow up of left knee pain, last injection 02/07/23. Patient states that her last injection is providing her with relief. She states that she was prescribed some pain medication which are helping her a lot with her pain. Allergies lisinopril [LISINOPRIL] Allergy (Severe, Verified 05/12/23 12:50) LIP NUMBNESS HPI ov- osteoarthritis, left knee HPI Details 62-year-old female who returns to the office today for a follow-up of left knee pain. She had her last injection on 02/07/23 which is providing her relief. She is taking Celebrex once a day which provider her great relief. PFSH Medical History Asthma Bilateral kidney stones Hypothyroid Surgical History Hx of arthroscopy of right knee Hx of hand surgery Previous section Social History Alcohol intake: never Patient Tobacco Use Status: Never used Tobacco Current occupational status: retired Current occupation: rt hand Review of Systems Const All systems reviewed & are unremarkable except as noted in HPI and below Physical Exam Vital Signs: BMI result Body Mass Index 46.9 Const General: cooperative, healthy appearing, comfortable, no acute distress, well developed and alert Orientation/consciousness: patient oriented x3 HEENT Head: Yes normal to inspection, Yes normocephalic and Yes atraumatic Eyes General: appearance normal, both eyes and all related structures Resp Effort & Inspection: normal respiratory effort and able to speak in complete sentences Cardio Rate: regular rate Peripheral pulses: Peripheral pulses 2+ throughout GI Palpation (GI): Soft to palpation Skin Lesions: no lesions Rashes: no rashes Neuro General: patient oriented x3 Extrem Other: Left knee skin intact, no erythema or joint effusion. No significnat Tenderness along the medial and lateral joint line. Full ROM with crepitus. Negative Nick?s. No ligamentous laxity. NVI. Assessment & Plan Assessment & Plan (1) Osteoarthritis of left knee: Code(s): M17.12 - Unilateral primary osteoarthritis, left knee Plan At this time, I sent her a refill of Celebrex to her pharmacy as this has been helping her to manage her discomfort. She has been able to perform daily activities without limitations and if symptoms persist or worsens, patient will contact the office, otherwise follow-up as needed. Medications: Refilled celecoxib (Celebrex) 200 mg PO BID 60 caps 3RF 30 days Patient Instructions: Scribed for Olu Esteban PA-C, by Tan Escobedo medical office representative, on 05/12/2023 at 12:45 PM EST. Quentin, Olu Esteban PA-C, have personally reviewed and agree with the information entered by the scribe. Coding Level of Care Code Est Pt Level 3 (00339) Diagnoses Osteoarthritis of left knee M17.12
[2023-05-12 12:51] VITALS: BMI 46.9
== END 2023-05-12 14:13 | disposition home or self-care (01) ==
PROVIDERS: Visit Provider Physician Assistant
DX: M17.12 Unilateral primary osteoarthritis, left knee (principal)
CPT/HCPCS: 99213

== ENCOUNTER → 2023-05-12 12:41 | Outpatient (BNVA) | payer OTHER, SELFPAY | PROVIDERS: Visit Provider Physician Assistant | DX: M17.12 Unilateral primary osteoarthritis, left knee (principal); Z79.899 Other long term (current) drug therapy | CPT/HCPCS: 99212 ==